=== PATIENT | female | born 1955 | race Caucasian/White ===

== ENCOUNTER 2018-01-04 09:09 | Outpatient (CLI) | payer BC, SELFPAY ==
[2018-01-04 11:46] LABS: ALT 21 U/L (12-78); AST 20 U/L (15-37); Albumin 3.9 g/dL (3.4-5.0); Alkaline Phosphatase 70 U/L (46-116); BUN 15 mg/dL (7-18); Bilirubin, Total 0.9 mg/dL (0.2-1.0); CREATININE 0.77 mg/dL (0.55-1.02); Calcium 9.1 mg/dL (8.5-10.1); Chloride 102 mmol/L (98-107); Glucose 94 mg/dL (70-100); Potassium 4.7 mmol/L (3.5-5.1); Sodium 140 mmol/L (136-145); TSH (W/Ref FT4) 4.36 uIU/mL (0.358-3.74); Total Protein 6.8 g/dL (6.4-8.2)
== END 2018-01-04 09:29 ==
PROVIDERS: Visit Provider Internal Medicine
DX: E03.9 Hypothyroidism, unspecified (principal)
CPT/HCPCS: 36415; 80053; 84439; 84443

== ENCOUNTER 2018-06-27 07:00 | Outpatient (CLI) | payer MEDICARE, BC, SELFPAY ==
[2018-06-27 13:09] LABS: Absolute Basophil Count 0.03 k/cumm (0.0-0.2); Absolute Eosinophil Count 0.07 k/cumm (0.0-0.7); Absolute Lymphocyte Count 1.87 k/cumm (1.2-3.4); Absolute Monocyte Count 0.39 k/cumm (0.11-0.7); Absolute Neutrophil Count 2.13 k/cumm (1.2-6.7); Basophils % 0.7; Eosinophils % 1.6; HCT 41.1 % (36.0-46.0); HGB 14.2 g/dL (12.0-15.5); Lymphocytes % 41.6; Mean Corp. HGB Concentration 34.5 g/dL (32.0-36.0); Mean Corpuscular Hemoglobin 32.2 pg (27.0-33.0); Mean Corpuscular Volume 93.2 fL (80-95); Monocytes % 8.7; Neutrophils % 47.4; Platelet Count 231 x1000/uL (130-400); RBC 4.41 m/cumm (4.00-5.20); RBC Distribution Width 12.5 % (11.7-14.6); White Blood Cell Count 4.49 k/cumm (4.4-10.8)
[2018-06-27 14:09] LABS: C-Reactive Protein 0.08 mg/dL (0.0-0.3)
[2018-06-27 14:20] LABS: ESR 10 MM/HR (0-30)
[2018-06-27 15:00] LABS: FREE T4 1.22 ng/dL (0.76-1.46)
== END 2018-06-27 07:20 ==
PROVIDERS: Visit Provider Internal Medicine
DX: R21 Rash and other nonspecific skin eruption (principal); M25.50 Pain in unspecified joint; E03.9 Hypothyroidism, unspecified; G25.2 Other specified forms of tremor; G47.00 Insomnia, unspecified
CPT/HCPCS: 36415; 85652; 84439; 84443; 85025; 86140

== ENCOUNTER 2018-08-30 01:39 | Outpatient (CLI) | payer MEDICARE, BC, SELFPAY | END 2018-08-30 01:59 | DX: E03.9 Hypothyroidism, unspecified (principal) | CPT/HCPCS: 36415; 84443 ==

== ENCOUNTER 2019-12-25 03:15 | Outpatient (CLI) | payer MEDICARE, BC, SELFPAY ==
[2019-12-25 13:33] LABS: ALT 19 U/L (14-59); AST 20 U/L (15-37); Albumin 4.3 g/dL (3.4-5.0); Alkaline Phosphatase 68 U/L (46-116); Anion Gap 11.1 mmol/L (3-11); BUN 13 mg/dL (7-18); Bilirubin, Total 1.1 mg/dL (0.2-1.0); CO2 26.9 mmol/L (21.0-32.0); CREATININE 0.85 mg/dL (0.55-1.02); Chloride 102 mmol/L (98-107); Glucose 97 mg/dL (74-106); Potassium 4.1 mmol/L (3.5-5.1); Sodium 140 mmol/L (136-145); TSH (W/Ref FT4) 9.49 uIU/mL (0.36-3.74); Total Protein 6.9 g/dL (6.4-8.2)
[2019-12-25 13:52] LABS: FREE T4 1.22 ng/dL (0.76-1.46)
== END 2019-12-25 03:35 ==
DX: E03.9 Hypothyroidism, unspecified (principal); G25.2 Other specified forms of tremor; G47.00 Insomnia, unspecified
CPT/HCPCS: 36415; 80053; 84439; 84443

== ENCOUNTER 2020-01-09 15:54 | Outpatient (REF) | payer MEDICARE, BC, SELFPAY ==
--- NOTE | 2020-01-09 11:20 | PAPFT_PTH ---
PATIENT: Lela Silva LOC: [facility] U#:[id number] AGE/SX: 64/F ROOM: RE01/09/[address]: Pia Pulido APRN : 1955 BED: DIS: 01/09/2020 SPEC #: [id number] RECD: 01/10/20 12:49 STATUS: KEITH REQ #: [id number] MELANIA: 01/09/20 11:[address]: Pia Pulido DEPT: [facility] Cytology RECD BY: Miya Chatterjee Tissues: 1 - CX/ENDOCX FOR PAP SMEARS Procedures: PAP THIN PREP/UVM Screening HPV DNA PROBE Comments: [id number] ([id number] [facility])
== END 2020-01-09 16:14 ==
LOC: LBN 15:54
DX: Z12.4 Encounter for screening for malignant neoplasm of cervix (principal); Z11.51 Encounter for screening for human papillomavirus (HPV)
CPT/HCPCS: 88142; 87624

== ENCOUNTER 2020-03-11 04:19 | Outpatient (CLI) | payer MEDICARE, BC, SELFPAY ==
[2020-03-11 17:27] LABS: TSH (W/Ref FT4) 3.15 uIU/mL (0.36-3.74)
== END 2020-03-11 04:39 ==
DX: E03.9 Hypothyroidism, unspecified (principal)
CPT/HCPCS: 36415; 84443

== ENCOUNTER 2021-01-11 15:05 | Outpatient (REF) | payer MEDICARE, BC, SELFPAY ==
[2021-01-13 15:03] LABS: COVID-19 RT-PCR UVMMC Result Negative (Negative)
== END 2021-01-11 15:06 | disposition home or self-care (01) ==
LOC: LBN 15:05
DX: Z20.822 Contact with and (suspected) exposure to COVID-19 (principal)
CPT/HCPCS: U0003

== ENCOUNTER 2021-01-21 02:36 | Outpatient (CLI) | payer MEDICARE, BC, SELFPAY ==
[2021-01-21 09:32] LABS: ALT 22 U/L (14-59); AST 23 U/L (15-37); Albumin 3.9 g/dL (3.4-5.0); Alkaline Phosphatase 61 U/L (46-116); Anion Gap 10.7 mmol/L (3-11); BUN 15 mg/dL (7-18); Bilirubin, Total 0.9 mg/dL (0.2-1.0); CO2 26.3 mmol/L (21.0-32.0); CREATININE 0.8 mg/dL (0.55-1.02); Calcium 8.6 mg/dL (8.5-10.1); Calculated LDL 137 mg/dL (<100); Chloride 102 mmol/L (98-107); Cholesterol 246 mg/dL (<200); Glucose 85 mg/dL (74-106); HDL Cholesterol 97 mg/dL (40-60); Potassium 4.4 mmol/L (3.5-5.1); Sodium 139 mmol/L (136-145); Total Protein 6.7 g/dL (6.4-8.2); Triglyceride 62 mg/dL (<150)
== END 2021-01-21 02:37 | disposition home or self-care (01) ==
LOC: LBO 02:36
DX: G47.00 Insomnia, unspecified; E03.9 Hypothyroidism, unspecified; E78.5 Hyperlipidemia, unspecified; Z00.00 Encounter for general adult medical examination without abnormal findings
CPT/HCPCS: 36415; 80053; 80061; 84443

== ENCOUNTER 2022-02-08 02:07 | Outpatient (CLI) | payer MEDICARE, BC, SELFPAY ==
[2022-02-08 13:08] LABS: TSH (W/Ref FT4) 1.12 uIU/mL (0.36-3.74)
== END 2022-02-08 02:08 | disposition home or self-care (01) ==
LOC: LOS 02:07
PROVIDERS: PCP Nurse Practitioner Family; Visit Provider Nurse Practitioner Family
DX: E03.9 Hypothyroidism, unspecified (principal)
CPT/HCPCS: 36415; 84443

== ENCOUNTER 2023-03-10 10:31 | Outpatient (REF) | payer MEDICARE, BC, SELFPAY ==
[2023-03-10 13:21] LABS: TSH (W/Ref FT4) 0.07 uIU/mL (0.36-3.74)
[2023-03-10 13:38] LABS: FREE T4 1.29 ng/dL (0.76-1.46)
== END 2023-03-10 10:32 | disposition home or self-care (01) ==
LOC: NCHCN 10:31
PROVIDERS: PCP Nurse Practitioner Family; Visit Provider Nurse Practitioner Family
DX: E03.9 Hypothyroidism, unspecified (principal)
CPT/HCPCS: 84439; 84443

== ENCOUNTER → 2023-03-16 02:34 | Outpatient (CLI) | payer MEDICARE, BC, SELFPAY ==
--- NOTE | 2023-03-16 07:00 | DI.DEXA_ITS ---
Exam(s) XR DEXA BONE DENSITY W/WO MARSHA EXAM: XR DEXA BONE DENSITY W/WO MARSHA CLINICAL HISTORY: screening for osteoporosis IN POSTMENOPAUSAL WOMAN,Z78.0 TECHNIQUE: COMPARISON: DX DEXA BONE DENSITY WITH MARSHA from 02/08/2017 FINDINGS: Lateral Spine Image: Unremarkable. No compression deformities identified. Left hip: Total T-Score: -0.9. This compares to -0.8 on the prior examination. Total Z-Score: 0.6 T- and Z-scores: Within normal limits. Lumbar Spine: Total T-Score: -1.2. This compares to -1.1 on the prior examination. Total Z-Score: 0.9 T- and Z-scores: Findings are consistent with osteopenia. Note is made of osteoporosis in the left forearm with a total T-score of -2.6 and a Z-score of -0.6. IMPRESSION: Osteoporosis in the left forearm.
== END ==
PROVIDERS: PCP Nurse Practitioner Family; Visit Provider Nurse Practitioner Family
DX: Z78.0 Asymptomatic menopausal state (principal); Z13.820 Encounter for screening for osteoporosis
CPT/HCPCS: 77080

== ENCOUNTER 2023-06-06 04:07 | Outpatient (CLI) | payer MEDICARE, BC, SELFPAY ==
[2023-06-06 14:52] LABS: TSH (W/Ref FT4) 0.03 uIU/mL (0.36-3.74)
[2023-06-06 15:11] LABS: FREE T4 1.37 ng/dL (0.76-1.46)
== END 2023-06-06 04:08 | disposition home or self-care (01) ==
LOC: LBO 04:07
PROVIDERS: PCP Nurse Practitioner Family; Visit Provider Nurse Practitioner Family
DX: E03.9 Hypothyroidism, unspecified (principal)
CPT/HCPCS: 36415; 84439; 84443

== ENCOUNTER 2023-08-02 01:43 | Outpatient (CLI) | payer MEDICARE, BC, SELFPAY ==
[2023-08-02 12:02] LABS: TSH (W/Ref FT4) 0.15 uIU/mL (0.36-3.74)
[2023-08-02 12:19] LABS: FREE T4 1.23 ng/dL (0.76-1.46)
== END 2023-08-02 01:44 | disposition home or self-care (01) ==
LOC: LBO 01:43
PROVIDERS: PCP Nurse Practitioner Family; Visit Provider Nurse Practitioner Family
DX: E03.9 Hypothyroidism, unspecified (principal)
CPT/HCPCS: 36415; 84439; 84443

== ENCOUNTER 2023-10-02 16:19 | Outpatient (CLI) | payer MEDICARE, BC, SELFPAY ==
[2023-10-02 18:05] LABS: TSH (W/Ref FT4) 1.41 uIU/mL (0.36-3.74)
== END 2023-10-02 16:20 | disposition home or self-care (01) ==
LOC: LBO 16:21
PROVIDERS: PCP Nurse Practitioner Family; Visit Provider Nurse Practitioner Family
DX: E03.9 Hypothyroidism, unspecified (principal)
CPT/HCPCS: 36415; 84443

== ENCOUNTER → 2023-10-18 08:25 | Outpatient (BNVA) | payer MEDICARE, BC, SELFPAY | PROVIDERS: PCP Nurse Practitioner Family; Referring Provider Nurse Practitioner Family; Visit Provider Podiatrist | DX: M20.42 Other hammer toe(s) (acquired), left foot (principal); L84 Corns and callosities; M67.01 Short Achilles tendon (acquired), right ankle; M67.02 Short Achilles tendon (acquired), left ankle; M77.41 Metatarsalgia, right foot; M77.42 Metatarsalgia, left foot; M21.611 Bunion of right foot; M21.612 Bunion of left foot | CPT/HCPCS: 17110; 29540 ==

== ENCOUNTER 2024-04-11 01:17 | Outpatient (CLI) | payer MEDICARE, BC, SELFPAY ==
[2024-04-11 09:31] LABS: BUN 11 mg/dL (7-18); CREATININE 0.8 mg/dL (0.55-1.02); Calcium 8.8 mg/dL (8.5-10.1); Calculated LDL 129 mg/dL (<100); Chloride 105 mmol/L (98-107); Cholesterol 230 mg/dL (<200); Estimated GFR 79.22 (mL/min/1.73m2); Glucose 94 mg/dL (74-106); HDL Cholesterol 88 mg/dL (40-60); Potassium 4.5 mmol/L (3.5-5.1); Sodium 142 mmol/L (136-145); TSH (W/Ref FT4) 10.59 uIU/mL (0.36-3.74); Triglyceride 66 mg/dL (<150)
[2024-04-11 14:08] LABS: FREE T4 0.99 ng/dL (0.76-1.46)
== END 2024-04-11 01:18 | disposition home or self-care (01) ==
PROVIDERS: PCP Nurse Practitioner Family; Visit Provider Nurse Practitioner Family
DX: E03.9 Hypothyroidism, unspecified (principal); Z13.1 Encounter for screening for diabetes mellitus
CPT/HCPCS: 36415; 80048; 80061; 84439; 84443

== ENCOUNTER 2024-12-06 07:58 | Emergency (ER) | payer MEDICARE, BC, SELFPAY ==
[2024-12-06 08:02] VITALS: BP 127/84; PULSE 89; RESP 18; TEMP 36.7; O2SAT 100
--- NOTE | 2024-12-06 08:15 | DI.RAD_ITS ---
Exam(s) XR ANKLE LT COMPLETE EXAM: XR ANKLE LT COMPLETE CLINICAL HISTORY: L ankle pain TECHNIQUE: 2D digital imaging was performed. Three views. COMPARISON: CR LEFT FOOT COMPLETE from 01/11/2008 FINDINGS: BONES: There is a nondisplaced oblique fracture extending through the distal fibula. There is a smoothly marginated bony density beneath the tip of the medial malleolus which appears old. No bony destructive lesion is seen. JOINTS:The there is mild widening of the medial ankle mortise. SOFT TISSUE: Swelling around lateral malleolus. IMPRESSION: Nondisplaced distal fibular fracture. Mild widening of the medial ankle mortise. DATA REPOSITORY: RADIATION DOSE DELIVERED:
--- NOTE | 2024-12-06 08:46 | W.ED.GENAD ---
Discharge Plan Disposition Patient Disposition: Home Condition: Stable Discharge Details Clinical Impression: Fracture of distal end of left fibula Primary Care Provider: [facility] ED Provider: Angel Elias Home Meds and New Rx's Prescriptions: Continued estradiol [Estrace] 0.01 % (0.1 mg/gram) cream 1 appful vaginal DAILY Qty: 42.5 12RF Rx Instructions: for 14 days, then 1-3 times per week as needed Calcium Magnesium plus D 1 EACH tablet 1 ea PO DAILY epinephrine [EpiPen 2-Joe] 0.3 mg/0.3 mL auto-injector 0.3 mg IM ONCE Qty: 1 1RF levothyroxine 75 mcg tablet 75 mcg PO DAILY Qty: 90 3RF valacyclovir 500 mg tablet See Rx Instructions .ROUTE .COMPLEX Qty: 20 3RF Dose Instruction: TAKE ONE TABLET BY MOUTH THREE TIMES A DAY NEEDED FOR VIRAL SUPPRESION Rx Instructions: TAKE ONE TABLET BY MOUTH THREE TIMES A DAY NEEDED FOR VIRAL SUPPRESION Discharge Instructions Instructions: Lower Leg Fracture ED Additional Instructions: You were seen in the emergency department for the fracture of your distal left fibula. This is a nondisplaced fracture but appears to have a spiral pattern to it, please remain in the walking boot /, you may remove it as long as you will be keeping your ankle immobilized to rest, ice, compress and elevate. Please take 650 mg of Tylenol every 6 hours like clockwork, intermediate between Tylenol doses take 400 mg of ibuprofen also on a 6-hour schedule for pain, use your crutches you may toe tap and partially weight-bear as tolerated. Orthopedics will see you in office for repeat x-rays next week, if you have not heard from them please call their office attached to your discharge paperwork. Referrals: [facility] [Provider Group] [facility], [employer]ATOR [Primary Care Provider, Medicine] Discharge Data Discharge Date/Time-TO BE ENTERED AT DEPARTURE: 12/06/24 09:40 HPI General Date/Time Provider Initiated Documentation: 12/06/24 08:21. HPI Narrative: 69 year-old female presents to ED today by POV/ambulating with a chief complaint of trip & fall on the stairs last night, with injury to L ankle- pain with weight-bearing. Quality described as painful throughout the anterior distal schmidt almost along the anterior tibialis muscle, no radiation to bruising, swelling of malleoli, numbness/tingling, knee pain. Severity is described as severe with weight-bearing, not terrible when immobilized. Palliating factors include RICE therapy. Provoking factors include weight-bearing. Events leading up to the incident/Associated Symptoms: Patient is R-sided dominant. Patient not anticoagulated. Related Data Home Medications ?Medication ?Instructions ?Recorded ?Confirmed calcium 500 mg (as 1 ea PO DAILY 11/02/12 12/06/24 carb,cit)-magnesium 250 mg-vit D3 200 unit tablet (Calcium Magnesium plus D) epinephrine 0.3 mg/0.3 mL 0.3 mg (0.3 mL) IM ONCE #1 pen 07/21/23 12/06/24 injection, auto-injector (EpiPen 2-Joe) levothyroxine 75 mcg tablet 75 mcg PO DAILY #90 tabs 02/19/24 12/06/24 estradiol 0.01% (0.1 mg/gram) 1 appful vaginal DAILY #42.5 grams 03/23/24 12/06/24 vaginal cream (Estrace) valacyclovir 500 mg tablet See Rx Instructions .Route 07/02/24 12/06/24 .COMPLEX #20 tabs Previous Rx's ?Medication ?Instructions ?Recorded epinephrine 0.3 mg/0.3 mL 0.3 mg (0.3 mL) IM ONCE #1 pen 07/21/23 injection, auto-injector (EpiPen 2-Joe) levothyroxine 75 mcg tablet 75 mcg PO DAILY #90 tabs 02/19/24 estradiol 0.01% (0.1 mg/gram) 1 appful vaginal DAILY #42.5 grams 03/23/24 vaginal cream (Estrace) valacyclovir 500 mg tablet See Rx Instructions .Route 07/02/24 .COMPLEX #20 tabs Allergies Allergy/AdvReac Type Severity Reaction Status Date / Time hymenoptera Allergy Intermediate Skin Rash Uncoded 12/06/24 08:05 bee stings AdvReac rash Uncoded 12/06/24 08:05 General Stated Complaint: Orthopedic MICHAEL: 4 Review of Systems All systems reviewed & are unremarkable except as noted in HPI and below Exam Narrative Exam Narrative: GENERAL APPEARANCE: Well-nourished, non-toxic, awake and alert, atraumatic, mild acute distress. SKIN: Warm, pink, dry, intact, without rashes/lesions/ulcerations. HEAD: Normocephalic, atraumatic, normal hair distribution for gender/age. EYES: Normal conjunctiva, no exudates on lids/lashes. ENT: Nares patent, no circumoral cyanosis, no facial swelling NECK: Supple, trachea midline, painless cervical ROM. LUNGS/CHEST: Non-labored respirations, normal A/P diameter, symmetrical expansion, no chest wall deformity HEART (CV/PV): Regular rate, no peripheral edema, no JVD. ABDOMEN: Soft, non-distended, no guarding. MSK: Normal ROM, no swelling/deformity to bilateral UEs or LEs, moving all extremities without weakness, no cyanosis, spine midline without tenderness, normal curvature, left anterior distal schmidt and ankle tenderness without overt malleoli or ecchymosis or swelling, left dorsalis pedis pulse 2+, able to move the foot with limited range of motion only slightly to pain, sensation intact. NEURO: Mental Status AAOx4 - alert to person, place, time, events No facial droop, no forehead involvement. Motor: No focal weakness - strength 5/5 in bilateral UEs and LEs, proximal and distal, symmetric. Sensory: sensation intact to light touch globally. Gait NT. PSYCH: euthymic, cooperative, pleasant, appropriate speech Course Vital Signs Vital signs: Vital Signs Temperature 36.7 C 12/06/24 08:02 Pulse 89 12/06/24 08:02 Respiratory Rate 18 12/06/24 08:02 Blood Pressure 127/84 12/06/24 08:02 Pulse Oximetry 100 12/06/24 08:02 Temperature 36.7 C 12/06/24 08:02 Pulse 89 12/06/24 08:02 Respiratory Rate 18 12/06/24 08:02 Blood Pressure 127/84 12/06/24 08:02 Blood Pressure Position Sitting 12/06/24 08:02 Pulse Oximetry 100 12/06/24 08:02 Oxygen Delivery Method Room Air 12/06/24 08:02 Oxygen Flow Rate 0 12/06/24 08:02 Pain Level 7 12/06/24 08:02 Comment pain only with movement 12/06/24 08:02 Medical Decision Making This dictation utilizes [id number] dictation software and may contain unedited grammatical errors. 69 year-old female presents to ED today by POV/ambulating with a chief complaint of trip & fall on the stairs last night, with injury to L ankle- pain with weight-bearing. Quality described as painful throughout the anterior distal schmidt almost along the anterior tibialis muscle, no radiation to bruising, swelling of malleoli, numbness/tingling, knee pain. Severity is described as severe with weight-bearing, not terrible when immobilized. Palliating factors include RICE therapy. Provoking factors include weight-bearing. Events leading up to the incident/Associated Symptoms: Patient is R-sided dominant. Patients' medical history: Noncontributory. Family and social history: Noncontributory. Pertinent exam findings / vital signs include left anterior distal schmidt and ankle tenderness without overt malleoli or ecchymosis or swelling, left dorsalis pedis pulse 2+, able to move the foot with limited range of motion only slightly to pain, sensation intact. Differential / pathologies of concern include fracture, sprain. Diagnostic studies of: - XR L ankle- shows non-displaced but suspicious spiral fracture of L fibula. Interventions of: -Discussed with Dr. Stack, reasonable for walking boot or posterior/stirrup per patient preference- patient will trial walking boot, crutches, toe tapping as tolerated. Recommend RICE therapy, therapeutic APAP/NSAID, f/u with ortho. ED Course/Assessment/Plan: 69-year-old female out of fall on the stairs last night injuring her left ankle, right ankle was also slightly injured but feels fine today, she has some tenderness along the anterior tibialis tendon but there is a suspicious fracture, radiologist reads as nondisplaced but does appear to have somewhat of a spiral pattern which can be unstable at times, the patient will trial a walking boot and follow-up with orthopedics for weightbearing x-ray as discussed with Dr. Stack and recommend RICE therapy and therapy dosing of Tylenol and ibuprofen, toe tapping as tolerated with crutches. Findings not consistent with neurovascular compromise. Disposition of Fracture of Distal End of Left Fibula. Patient verbalized understanding of the plan and return to ED criteria and engaged in shared decision making. Medical Records Medical records reviewed: Yes I reviewed the patient's medical records. Imaging Data Radiologic Study: Attestation: I personally reviewed and interpreted this imaging study as follows: Imaging: X-Ray Radiologist's impression: EXAM: XR ANKLE LT COMPLETE CLINICAL HISTORY: L ankle pain TECHNIQUE: 2D digital imaging was performed. Three views. COMPARISON: CR LEFT FOOT COMPLETE from 01/11/2008 FINDINGS: BONES: There is a nondisplaced oblique fracture extending through the distal fibula. There is a smoothly marginated bony density beneath the tip of the medial malleolus which appears old. No bony destructive lesion is seen. JOINTS:The there is mild widening of the medial ankle mortise. SOFT TISSUE: Swelling around lateral malleolus. IMPRESSION: Nondisplaced distal fibular fracture. Mild widening of the medial ankle mortise. PFSH All Active Problems (Updated 12/06/24 @ 09:07 by BERLIN Hanson) Fracture of distal end of left fibula (Acute) Metatarsalgia of both feet (Acute) Achilles tendon contracture, bilateral (Acute) Corns and callosities (Acute) Hammertoe of left foot (Acute) Leg cramps (Acute) Pain, foot (Acute) Capsulitis (Acute) Bunion (Acute) Fatigue (Acute) Encounter for annual physical exam (Acute) FH: ovarian cancer (Acute) Skin lesion of back (Chronic) H/O varicose veins (Chronic) Sleep disorder (Chronic 11/22/12) Intention tremor (Chronic) familial Hypothyroidism (Chronic 11/21/11) HSV (herpes simplex virus) infection (Acute 11/25/13) Atrophic vaginitis (Acute 11/21/11) Medical History Bunion Surgical History section x1 ( x1) Colonoscopy - MAC (~2003) 2003 WNL; 2013 BUNIONECTOMY (~2008) LEFT Family History Mother , 86 Ovarian cancer Father , 94 No problems noted. Sister No problems noted. Son No problems noted. Daughter No problems noted. Social History Smoking/Tobacco Use Status: Never Second Hand Exposure: Yes Smoking risk assessment performed?: Yes Alcohol Intake: current Alcohol Intake frequency: a few times a month Alcohol type: beer, wine and hard liquor Drug use: Never Substance use type: does not use Counseling given: No Counseling provided: none Caregiver/Support person: No Household members: spouse Housing: house Communication Needs: Corrective Lenses Do you need help understanding health information?: Rarely Pets and animals: Yes Pets and animals: cat(s) Sexually active: Yes Do you think of yourself as: straight/heterosexual Current gender identity: female What is your relationship status?: How often do you talk on the phone with friends or family?: twice per week How often do you get together with friends or relatives?: once per week How often do you attend spiritism or druze services?: 1-3 times per year Do you belong to any clubs or organized social groups?: no Panel score (0-1 are the most socially isolated patients): 2 What type of physical activity do you participate in: walking and other Details: dancing Duration: 30-45 minutes/day Frequency: daily Liliana/Confucianism: No preference Special liliana needs: No Seatbelt use: always Helmet use: Yes Helmet use: sometimes Drive intox or ride w/intox cpr ambulance driver: No Do you feel safe at home: Yes Do you feel safe in your relationship?: Yes Victim of physical abuse: No Victim of emotional abuse: No Victim of sexual abuse: No Would you like helpful sources: No
[2024-12-06 09:40] VITALS: BP 109/74; PULSE 72; RESP 16; O2SAT 98
--- NOTE | 2024-12-06 16:44 | NUR.NOTE ---
chart accessed to print facesheet for ortho paperwork Nursing Note:
--- NOTE | 2024-12-09 11:48 | NUR.NOTE ---
Access chart to determine if there was a referral to ortho had been done per [facility], Nursing Note:
--- NOTE | 2025-01-07 16:46 | NUR.NOTE ---
Accessed Pt chart to print off Provider Notes for [facility] paperwork
== END 2024-12-06 09:40 | disposition home or self-care (01) ==
PROVIDERS: Emergency Provider Physician Assistant; PCP Nurse Practitioner Family
DX: S82.832A Other fracture of upper and lower end of left fibula, initial encounter for closed fracture (principal); W10.8XXA Fall (on) (from) other stairs and steps, initial encounter
CPT/HCPCS: 99283 ×2; 29515; 73610

== ENCOUNTER 2024-12-10 15:13 | Outpatient (CLI) | payer MEDICARE, BC, SELFPAY ==
--- NOTE | 2024-12-10 14:55 | DI.RAD_ITS ---
Exam(s) XR ANKLE LT COMPLETE EXAM: XR ANKLE LT COMPLETE CLINICAL HISTORY: F/U FRACTURE TECHNIQUE: 2D digital imaging was performed. Three views. COMPARISON: CR XR ANKLE LT COMPLETE from 12/06/2024 FINDINGS: BONES: The alignment of the distal fibular fracture is unchanged. No bony destructive lesion is seen. JOINTS:The ankle mortise is normally aligned. SOFT TISSUE: Normal. IMPRESSION: Stable alignment of distal fibular fracture. DATA REPOSITORY: RADIATION DOSE DELIVERED:
== END 2024-12-10 15:14 | disposition home or self-care (01) ==
LOC: DIORS 15:14
PROVIDERS: PCP Nurse Practitioner Family; Referring Provider Nurse Practitioner Family; Visit Provider Student in an Organized Health Care Education/Training Program
DX: S82.832A Other fracture of upper and lower end of left fibula, initial encounter for closed fracture (principal); W10.9XXA Fall (on) (from) unspecified stairs and steps, initial encounter; Y93.01 Activity, walking, marching and hiking
CPT/HCPCS: 99213; 73610

== ENCOUNTER 2024-12-24 15:22 | Outpatient (CLI) | payer MEDICARE, BC, SELFPAY ==
--- NOTE | 2024-12-24 13:00 | DI.RAD_ITS ---
Exam(s) XR ANKLE LT COMPLETE EXAM: XR ANKLE LT COMPLETE CLINICAL HISTORY: F/U FRACTURE TECHNIQUE: 2D digital imaging was performed of the left ankle. Three images were obtained. AP, lateral and oblique views were obtained. COMPARISON: CR XR ANKLE LT COMPLETE from 12/10/2024 FINDINGS: BONES: There has been no change in alignment of the fracture of the distal fibula. The fracture lines are still visualized. There is no new fracture. No bony destructive lesion is seen. JOINTS:The ankle mortise is normally aligned. SOFT TISSUE: There is mild soft tissue swelling laterally. IMPRESSION: Stable alignment of the distal fibular fracture. DATA REPOSITORY: RADIATION DOSE DELIVERED:
== END 2024-12-24 15:23 | disposition home or self-care (01) ==
LOC: DIORS 15:22
PROVIDERS: PCP Nurse Practitioner Family; Referring Provider Nurse Practitioner Family; Visit Provider Student in an Organized Health Care Education/Training Program
DX: S82.832D Other fracture of upper and lower end of left fibula, subsequent encounter for closed fracture with routine healing (principal); X58.XXXD Exposure to other specified factors, subsequent encounter
CPT/HCPCS: 99213; 73610

== ENCOUNTER 2025-01-14 14:32 | Outpatient (CLI) | payer MEDICARE, BC, SELFPAY ==
--- NOTE | 2025-01-14 14:00 | DI.RAD_ITS ---
Exam(s) XR ANKLE LT COMPLETE EXAM: XR ANKLE LT COMPLETE CLINICAL HISTORY: F/U FRACTURE TECHNIQUE: 2D digital imaging was performed. Three views. COMPARISON: CR XR ANKLE LT COMPLETE from 12/24/2024 FINDINGS: BONES: There has been continued healing of the distal fibular fracture with increased callus formation. No acute fracture is present. No bony destructive lesion is seen. Chronic bony density beneath the medial malleolus. JOINTS:The ankle mortise is normally aligned. SOFT TISSUE: Mild soft tissue swelling. IMPRESSION: Continued healing of distal fibular fracture. DATA REPOSITORY: RADIATION DOSE DELIVERED:
== END 2025-01-14 14:33 | disposition home or self-care (01) ==
LOC: DIORS 14:32
PROVIDERS: PCP Nurse Practitioner Family; Referring Provider Nurse Practitioner Family; Visit Provider Student in an Organized Health Care Education/Training Program
DX: S82.832D Other fracture of upper and lower end of left fibula, subsequent encounter for closed fracture with routine healing (principal); X58.XXXD Exposure to other specified factors, subsequent encounter
CPT/HCPCS: 99213; 73610